=== PATIENT | female | born 1965 | race Caucasian/White ===

== ENCOUNTER 2018-02-14 13:33 | Emergency (ER) | payer OTHER ==
--- NOTE | 2018-02-14 15:50 | C.PDOC ---
History Of Present Illness 52 year odl female patient presents to the ER with complaints of pain on right trapezius area radiating to the right arm x3 days. 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 She put a heating pad on right shoulder last night with no relief. Time Seen by Provider: 02/14/18 14:17 Chief Complaint (Nursing): Upper Extremity Problem/Injury History Per: Patient History/Exam Limitations: no limitations Onset/Duration Of Symptoms: Days (x3) Current Symptoms Are (Timing): Still Present Past Medical History Reviewed: Historical Data, Nursing Documentation, Vital Signs Vital Signs: Last Vital Signs Temp 98.1 F 02/14/18 16:08 Pulse 66 02/14/18 16:08 Resp 16 02/14/18 16:08 BP 126/74 02/14/18 16:08 Pulse Ox 99 02/14/18 16:31 Family History: States: No Known Family Hx - Social History Hx Alcohol Use: No Hx Substance Use: No - Immunization History Hx Tetanus Toxoid Vaccination: No Hx Influenza Vaccination: No Hx Pneumococcal Vaccination: No Review Of Systems Except As Marked, All Systems Reviewed And Found Negative. Musculoskeletal: Positive for: Shoulder Pain (right shoulder pain radiates to arm) Physical Exam - Physical Exam Appears: Well, Non-toxic, No Acute Distress Skin: Normal Color, Warm Head: Atraumatic, Normacephalic Chest: Symmetrical, No Deformity Cardiovascular: Rhythm Regular Respiratory: Normal Breath Sounds Gastrointestinal/Abdominal: Soft, No Tenderness Extremity: Tenderness (right shoulder tenderness; no significant edema; Neuro intact. ), No Deformity, No Swelling Pulses: Left Radial: Normal, Right Radial: Normal Neurological/Psych: Oriented x3, Normal Speech, Normal Motor, Normal Sensation, Normal Reflexes Gait: Steady ED Course And Treatment O2 Sat by Pulse Oximetry: 99 Progress Note: Impression: 52 year old female patient with right trapezius pain radiating to right arm. Plan: -- Ibuprofen. -- TraMADOL. -- ice pack. Reassess: patient feels much improvement. Patient advise to f/u with PCP in 1-2 days and to come back if condition worsen. Medical Decision Making Medical Decision Making: R trapezius spasm, pain radiates down R lateral arm worse due to heat therapy for "a few hours" last night LOW susp of DVT NO radiology indicated. Disposition Doctor Will See Patient In The: Office Counseled Patient/Family Regarding: Studies Performed, Diagnosis - Disposition Referrals: Zachery Huerta MD [Staff Provider] - Disposition: HOME/ ROUTINE Disposition Time: 16:31 Condition: GOOD Additional Instructions: ice packs to R trapezius area 1/2 hour per hour, nothing hot. No hot showers. Motrin 400-600 mg every 6 hours as needed Tramadol 50 mg (narcotic pain reliever) one tablet every 6 hours as needed for more severe pain and for sleep Follow-up with your PMD as needed. Prescriptions: traMADol [Ultram] 50 mg PO Q6H PRN #20 tab PRN Reason: pain Instructions: Muscle Strain (DC), Muscle Spasms (DC) Forms: gumi (Romansh) - Clinical Impression Clinical Impression: Trapezius muscle spasm - Scribe Statement The provider has reviewed the documentation as recorded by the Adrianne Harrington Do Provider Attestation: All medical record entries made by the Scribe were at my direction and personally dictated by me. I have reviewed the chart and agree that the record accurately reflects my personal performance of the history, physical exam, medical decision making, and the department course for this patient. I have also personally directed, reviewed, and agree with the discharge instructions and disposition.
[2018-02-14 16:09] VITALS: BP 126/74; PULSE 66; RESP 16; TEMP 98.1
[2018-02-14 16:32] VITALS: O2SAT 99
== END 2018-02-14 16:39 | disposition home or self-care (01) ==
LOC: C.ER 13:33
DX: M62.838 Other muscle spasm (principal)